=== PATIENT | male | born 1980 | race Caucasian/White ===

== ENCOUNTER 2020-07-27 14:59 | Emergency (ER) | payer OTHER ==
[~2020-07-27] VITALS: Ht 193 cm; Wt 100.0 kg
[2020-07-27] MEDS ORDERED: IV NORMAL SALINE 1000ML BAG 1,000 ML IV SCH ×2 (15:15→17:15)
[2020-07-27] MEDS ORDERED: fentaNYL PF VIAL 100 MCG/2 ML VIAL IVP ONE ×2 (15:15→17:00)
--- NOTE | 2020-07-27 15:15 | PHYS DOC ---
General Adult EDM: Chief Complaint: ABDOMINAL PAIN HPI: HPI: Patient is a 40 year old male who presents with RLQ inguinal hernia x 1 year but today became hard, painful and the patient is unable to push back in. Bowel movement last today that was normal for him. Denies nausea, vomiting, diarrhea, urinary symptoms, fever, back pain, headache, dizziness, vision changes, numbness or tingling. Review of Systems: Review of Systems: Constitutional: Denies fever or chills. [] Eyes: Denies change in visual acuity. [] HENT: Denies nasal congestion or sore throat. [] Respiratory: Denies cough or shortness of breath. [] Cardiovascular: Denies chest pain or edema. [] GI: RLQ abdominal pain with hernia, denies nausea, vomiting, bloody stools or diarrhea. [] : Denies dysuria. [] Musculoskeletal: Denies back pain or joint pain. [] Integument: Denies rash. [] Neurologic: Denies headache, focal weakness or sensory changes. [] Endocrine: Denies polyuria or polydipsia. [] Lymphatic: Denies swollen glands. [] Psychiatric: Denies depression or anxiety. [] Heart Score: Risk Factors: Risk Factors: DM, Current or recent (<one month) smoker, HTN, HLP, family history of CAD, obesity. Risk Scores: Score 0 - 3: 2.5% MACE over next 6 weeks - Discharge Home Score 4 - 6: 20.3% MACE over next 6 weeks - Admit for Clinical Observation Score 7 - 10: 72.7% MACE over next 6 weeks - Early Invasive Strategies Allergies: Allergies: Allergies Coded Allergies Type Severity Reaction Last Updated Verified No Known Drug Allergies 07/27/20 No Physical Exam: PE: Constitutional: Well developed, well nourished, no acute distress, non-toxic appearance. [] HENT: Normocephalic, atraumatic, bilateral external ears normal, oropharynx moist, no oral exudates, nose normal. [] Eyes: PERRLA, EOMI, conjunctiva normal, no discharge. [] Neck: Normal range of motion, no tenderness, supple, no stridor. [] Cardiovascular:Heart rate regular rhythm, no murmur [] Lungs & Thorax: Bilateral breath sounds clear to auscultation [] Abdomen: Bowel sounds normal, soft, hard right lower inguinal incarcerated hernia, Right lower inguinal tenderness, right lower hernia masses, no pulsatile masses. [] Skin: Warm, dry, no erythema, no rash. [] Back: No tenderness, no CVA tenderness. [] Extremities: No tenderness, no cyanosis, no clubbing, ROM intact, no edema. [] Neurologic: Alert and oriented X 3, normal motor function, normal sensory function, no focal deficits noted. [] Psychologic: Affect normal, judgement normal, mood normal. [] EKG: EKG: [] Radiology/Procedures: Radiology/Procedures: [] Impression: [facility] [address] [place] [address] IMAGING REPORT Signed PATIENT: NINA MCCAULEY AACCOUNT: [id number] : 1980 LOCATION: ER AGE: 40 SEX: M EXAM STATUS: REG ER ORD. PHYSICIAN: LEONCIO BORREGO APRN REASON: right inguinal incarcerated hernia, pain PROCEDURE: CT ABD PELV W/ IV CONTRST ONLY Study: CT abdomen/pelvis with intravenous contrast Indication: Right inguinal incarcerated hernia. Pain. Comparison: None. Technique: Helical CT imaging performed of the abdomen and pelvis after the intravenous administration of 75 cc Omnipaque 300 contrast. Sagittal and coronal reformats were obtained. One or more of the following individualized dose reduction techniques were utilized for this examination: 1. Automated exposure control 2. Adjustment of the mA and/or kV according to patient size 3. Use of iterative reconstruction technique. Findings: Right inguinal hernia containing fat. Edematous fatty reticulation of the herniated fat as well as some free fluid within the hernia sac. The neck of the hernia measures approximately 2.2 cm transverse and extends 5.7 cm craniocaudal. Unremarkable liver, gallbladder, pancreas, spleen and adrenal glands. Symmetric renal parenchymal enhancement. No nephrolithiasis or collecting system dilatation. Unremarkable urinary bladder. Mild dystrophic mineralization within the prostate. The prostate itself is mildly prominent in size at 4.4 cm transverse. Unremarkable colon and appendix. Nonobstructed small bowel. Within normal limits stomach. Unremarkable major vasculature. No lymphadenopathy by size criteria. No free pelvic or abdominal fluid or pneumoperitoneum. No acute or aggressive osseous process. Chronic bilateral L5 pars defects without associated listhesis. Impression: Right inguinal hernia containing fat but with findings suggestive of incarceration with the herniated fat edematous and with a small amount of free fluid within the lower aspect of the hernia sac. Recommend correlation for reducibility. No bowel obstruction or other abnormality throughout the abdomen or pelvis. Electronically signed by: LEONIDAS MENJIVAR MD (07/27/2020 4:39 PM) [facility] DICTATED and SIGNED BY: LEONIDAS MENJIVAR MD DATE: 07/27/20 [id number] 0 Course & Med Decision Making: Course & Med Decision Making Pertinent Labs and Imaging studies reviewed. (See chart for details) See HPI. Alert and oriented x4. Ambulatory with steady gait. Skin pink warm and dry. Right lower inguinal hernia hard and unable to push back in. Abdomen otherwise soft and nontender. Blood work unremarkable. CT findings suggest incarceration as well as exam findings. Patient is in severe pain. Patient is given 100mcg fentanyl and Dr. Rodríguez has tried to push the hernia back in and it was unsuccessful. Patient will be admitted to the hospitalist and we will call the surgeon. Patient last ate and drank at 1300 today. After speaking with Dr. Muir and getting the patient admitted to the hospital and Dr. Yuan patient was able to get the hernia to go back in on his own after the fentanyl started working. Patient wants to leave and does not want to be seen by the surgeon. Patient will be discharged with pain medication and given follow-up to call Dr. Yuan. Dr. Yuan and Dr. Muir are notified. [] Santos Disclaimer: Santos Disclaimer: This electronic medical record was generated, in whole or in part, using a voice recognition dictation system. Departure Departure Impression: Primary Impression: Hernia Disposition: 05 DC/TRF OTHER TYPE INSTITUTI Condition: STABLE Referrals: SANDOR YUAN MD Patient Instructions: Inguinal Hernia, Adult Additional Instructions: Dr. Yuan says that he can see you in the clinic. Call the office on Tuesday to make an appointment. Take pain medication as prescribed and with food. If pain returns return to the emergency room. Scripts Hydrocodone Bit/Acetaminophen (HYDROCODONE-APAP 5-325 ) 1 Tab Tablet 1 TAB PO PRN Q6HRS PRN for PAIN, #12 TAB 0 Refills Prov: LEONCIO BORREGO APRN 07/27/20 LEONCIO BORREGO APRN Jul 27, 2020 15:14
[2020-07-27] MEDS ORDERED: CONTRAST GIVEN. MC PRN (15:30)
[2020-07-27] MEDS ORDERED: IOHEXOL 300 MG/ML 100ML VIAL. IV ONE (15:30)
[2020-07-27 15:45] LABS: BASO # 0.1 x10^3/uL (0.0-0.2); BASO % 1 % (0-3); EOS # 0.1 x10^3/uL (0.0-0.7); EOS % 1 % (0-3); HEMATOCRIT 41.2 % (39.0-53.0); HEMOGLOBIN 14.5 g/dL (13.0-17.5); LYMPH # 1.9 x10^3/uL (1.0-4.8); LYMPH % 22 % (24-48); MEAN CORPUSCULAR HEMOGLOBIN 33 pg (25-35); MEAN CORPUSCULAR HGB CONC 35 g/dL (31-37); MEAN CORPUSCULAR VOLUME 92 fL (79-100); MONO # 0.6 x10^3/uL (0.0-1.1); MONO % 7 % (0-9); NEUT # 5.9 x10^3/uL (1.8-7.7); NEUT % 69 % (31-73); PLATELET COUNT 151 x10^3/uL (140-400); RED BLOOD COUNT 4.46 x10^6/uL (4.30-5.70); RED CELL DISTRIBUTION WIDTH 12.3 % (11.5-14.5); WHITE BLOOD COUNT 8.5 x10^3/uL (4.0-11.0)
[2020-07-27 15:56] LABS: CALCIUM 9.1 mg/dL (8.5-10.1); CREATININE 1.2 mg/dL (0.7-1.3); GFR 67.8; POTASSIUM 3.5 mmol/L (3.5-5.1)
[2020-07-27 16:01] LABS: ALBUMIN/GLOBULIN RATIO 1.4 (1.0-1.7); TOTAL PROTEIN 6.8 g/dL (6.4-8.2)
--- NOTE | 2020-07-27 16:41 | RAD ---
Study: CT abdomen/pelvis with intravenous contrast Indication: Right inguinal incarcerated hernia. Pain. Comparison: None. Technique: Helical CT imaging performed of the abdomen and pelvis after the intravenous administratio n of 75 cc Omnipaque 300 contrast. Sagittal and coronal reformats were obtained. One or more of the following individualized dose reduction techniques were utilized for this examinat ion: 1. Automated exposure control 2. Adjustment of the mA and/or kV according to patient size 3. Use of iterative reconstruction technique. Findings: Right inguinal hernia containing fat. Edematous fatty reticulation of the herniated fat as well as so me free fluid within the hernia sac. The neck of the hernia measures approximately 2.2 cm transverse and extends 5.7 cm craniocaudal. Unremarkable liver, gallbladder, pancreas, spleen and adrenal glands. Symmetric renal parenchymal enh ancement. No nephrolithiasis or collecting system dilatation. Unremarkable urinary bladder. Mild dyst rophic mineralization within the prostate. The prostate itself is mildly prominent in size at 4.4 cm transverse. Unremarkable colon and appendix. Nonobstructed small bowel. Within normal limits stomach. Unremarkable major vasculature. No lymphadenopathy by size criteria. No free pelvic or abdominal flui d or pneumoperitoneum. No acute or aggressive osseous process. Chronic bilateral L5 pars defects without associated listhesi s. Impression: Right inguinal hernia containing fat but with findings suggestive of incarceration with the herniated fat edematous and with a small amount of free fluid within the lower aspect of the hernia sac. Recom mend correlation for reducibility. No bowel obstruction or other abnormality throughout the abdomen o r pelvis. Electronically signed by: LEONIDAS MENJIVAR MD (07/27/2020 4:39 PM) [facility] [place]
[2020-07-27] MEDS ORDERED: ONDANSETRON PF 4 MG/2 ML VIAL. IV PRN (17:15)
[2020-07-27] MEDS ORDERED: fentaNYL PF VIAL 100 MCG/2 ML VIAL IV PRN (17:15)
--- NOTE | 2020-07-27 17:21 | RAD ---
Exam: Chest one view INDICATION: Presurgery x-ray TECHNIQUE: Frontal view of the chest Comparisons: None FINDINGS: The cardiomediastinal silhouette and pulmonary vessels are within normal limits. The lung and pleural spaces are clear. IMPRESSION: No acute cardiopulmonary process. Electronically signed by: Jeanne Austin MD (07/27/2020 5:19 PM) [facility]
[2020-07-27] MEDS ORDERED: HYDR-2761 PO (17:37)
[2020-07-27 17:56] VITALS: BP 139/71
--- NOTE | 2020-07-29 17:21 | NUR ---
IP: Attempted to contact pt concerning COVID results. No answer. Left a voicemail to return the call.
--- NOTE | 2020-07-30 15:00 | NUR ---
IP: Attempted a second time to contact pt concerning COVID results. Again no answer. Left a voicemail to return the call.
== END 2020-07-27 17:50 | disposition home or self-care (01) ==
LOC: ER 14:59
DX: K45.8 Other specified abdominal hernia without obstruction or gangrene (principal); R10.31 Right lower quadrant pain; Z20.818 Contact with and (suspected) exposure to other bacterial communicable diseases
CPT/HCPCS: 36415; 71045; 74177; 80053; 83605; 83690; 85025; 87426; 96361; 96374; 96376; 99285; J3010; J7030; Q9967; U0003; C9803